=== PATIENT | male | born 1980 | race Caucasian/White ===

== ENCOUNTER → 2020-11-25 | Day surgery (SDC) | payer BC ==
[~2020-11-25] MED LIST: Acetaminophen/oxyCODONE 325-5 MG Tab PO PRN; Lactated Ringers 1,000 ML IV SCH; Morphine 4 MG/ML VIAL IV PRN; Ondansetron 4 MG/2 ML SDV IVPUSH PRN; Sodium Chloride 0.9% 10 ML Syringe FLUSH PRN; ceFAZolin 1 GM Vial IVPUSH STA
--- NOTE | 2020-11-25 20:19 | OR ---
DATE OF OPERATION: 11/25/2020 PREOPERATIVE DIAGNOSIS: ACUTE CHOLECYSTITIS. POSTOPERATIVE DIAGNOSIS: ACUTE CHOLECYSTITIS. SURGEON: Christiano Hernandes MD PROCEDURE: LAPAROSCOPIC CHOLECYSTECTOMY. ANESTHESIA: General. ESTIMATED BLOOD LOSS: Minimal. SPECIMEN: Gallbladder. INDICATIONS: This 40-year-old male has symptomatic right upper quadrant abdominal pain. An ultrasound shows questionable stones, but possible mass in the Masoud's pouch of the gallbladder and thickened wall. DESCRIPTION OF PROCEDURE: After adequate preparation, an infraumbilical incision was made and a Veress needle placed intra-abdominally for insufflation. Three other trocars were then placed under direct vision. Examination of the abdomen showed a markedly distended gallbladder with petechiae around the serosal surface. This was much too tense and large to grab with even my large grasper with teeth. Using cautery, I made a cystotomy in the fundus of the gallbladder and inserted a laparoscopic suction device to empty the gallbladder. The cystic triangle structures were then identified and dissected free. The cystic duct was dissected down as far as I could safely to make sure that this was the duct and not the common duct, but the duct remained edematous and thick for the size clip that was available. I decided to use a blue Endo-ALEXIS stapling device to transect the cystic duct. The cystic artery then came into view. This was triply clipped and divided. The gallbladder was then taken off the liver bed using blunt, sharp, and Bovie dissection. Hemostasis was controlled with cautery. The right upper quadrant was irrigated with 1.5 L of saline and suctioned clear. Hemostasis seemed adequate. The trocars were removed and the abdomen desufflated. The gallbladder had been taken out through the epigastric trocar site. There was no need for fascial closure as this was slipped down without dilation. BPB/MODL /[id number]
--- NOTE | 2020-11-26 09:01 | PCM.SN.2 ---
- Free Text/Narrative Note: Stable POD #1. Pain controlled. Wounds clean and dry. PO liquids tolerated well. Can discharge now. No restrictions, FU as needed.
== END | disposition home or self-care (01) ==
LOC: CC.SDS 12:49
PROVIDERS: ATTEND Surgery
DX: K80.10 Calculus of gallbladder with chronic cholecystitis without obstruction (principal); E78.00 Pure hypercholesterolemia, unspecified; R03.0 Elevated blood-pressure reading, without diagnosis of hypertension; K21.9 Gastro-esophageal reflux disease without esophagitis; E66.9 Obesity, unspecified; Z68.30 Body mass index [BMI] 30.0-30.9, adult
CPT/HCPCS: 47562; A9270; J0690; J7120; 00790

== ENCOUNTER 2024-01-04 11:01 | Day surgery (SDC) | payer BC ==
[~2024-01-04 11:01] MED LIST changes: -Acetaminophen/oxyCODONE 325-5 MG Tab PO PRN; -Morphine 4 MG/ML VIAL IV PRN; -Ondansetron 4 MG/2 ML SDV IVPUSH PRN; -Sodium Chloride 0.9% 10 ML Syringe FLUSH PRN; -ceFAZolin 1 GM Vial IVPUSH STA
[2024-01-04] MEDS ORDERED: Propofol 200 MG/20 ML SDV ONE ×2 (12:02)
[2024-01-04] MEDS ORDERED: Midazolam 1 MG/ML 2 ML SDV ONE (12:02)
[2024-01-04] MEDS ORDERED: Ketamine 200 MG/20 ML MDV ONE (12:02)
[2024-01-04] MEDS ORDERED: fentaNYL 50 MCG/ML SDV ONE (12:02)
== END 2024-01-04 13:29 | disposition home or self-care (01) ==
LOC: CC.SDS 11:01
PROVIDERS: ATTEND Family Medicine
DX: Z12.11 Encounter for screening for malignant neoplasm of colon (principal); D12.0 Benign neoplasm of cecum; D12.8 Benign neoplasm of rectum; K57.30 Diverticulosis of large intestine without perforation or abscess without bleeding; I10 Essential (primary) hypertension; K21.9 Gastro-esophageal reflux disease without esophagitis; Z79.899 Other long term (current) drug therapy
CPT/HCPCS: 00811; J2250; J2704; J3010; J3490